=== PATIENT | female | born 1995 | race Caucasian/White ===

== ENCOUNTER 2019-06-16 07:39 | Inpatient (IN) | payer SELFPAY ==
[2019-06-16 08:24] LABS: APPEARANCE,URINE CLEAR; BILIRUBIN,URINE NEGATIVE (NEGATIVE); COLOR,URINE STRAW; GLUCOSE, URINE NEGATIVE (NEGATIVE); KETONES,URINE NEGATIVE (NEGATIVE); LEUKOCYTE ESTERASE,URINE NEGATIVE (NEGATIVE); NITRITE,URINE NEGATIVE (NEGATIVE); PROTEIN,URINE NEGATIVE (NEGATIVE); URINE SPECIFIC GRAVITY 1.002; UROBILINOGEN,URINE NEGATIVE mg/dL (<2.0)
[2019-06-16 08:55] LABS: URINE AMPHETAMINES SCREEN NEGATIVE; URINE BARBITURATES SCREEN NEGATIVE; URINE BENZODIAZEPINES SCREEN NEGATIVE; URINE COCAINE SCREEN NEGATIVE; URINE MARIJUANA (THC) SCREEN NEGATIVE; URINE METHADONE SCREEN NEGATIVE; URINE PHENCYCLIDINE SCREEN NEGATIVE
[2019-06-16] MEDS ORDERED: RINGERS SOLUTION,LACTATED 1,000 ML IV PRN (08:55)
[2019-06-16] MEDS ORDERED: RINGERS SOLUTION,LACTATED 1,000 ML IV ONE (08:55)
[2019-06-16] MEDS ORDERED: VANCOMYCIN HCL 1,000 MG in DEXTROSE 5%-WATER 250 ML IV SCH (09:00)
[2019-06-16] MEDS ORDERED: VANCOMYCIN HCL INJ 1000 MG VIAL ONE (09:05)
[2019-06-16] MEDS ORDERED: TERBUTALINE SULFATE INJ/PF 1 MG/1 ML SDV SUBCUT ONE (09:35)
[2019-06-16] MEDS ORDERED: TERBUTALINE SULFATE INJ/PF 1 MG/1 ML SDV ONE (09:36)
[2019-06-16] MEDS ORDERED: OXYTOCIN/NORMAL SALINE 20 UNIT/1,000 ML RTUINJ ONE (09:37)
[2019-06-16 09:46] LABS: ABSOLUTE BASOPHILS # (AUTO) 0.1 10^3/uL (0.0-0.2); ABSOLUTE EOSINOPHILS # (AUTO) 0.1 10^3/uL (0.0-0.6); ABSOLUTE MONOCYTES (AUTO) 0.5 10^3/uL (0.1-1.4); ABSOLUTE NEUT (AUTO) 7.5 10^3/uL (1.7-8.2); BASOPHILS % (AUTO) 0.6 % (0-2); EOSINOPHILS % (AUTO) 1.2 % (0-6); HEMATOCRIT 29.3 % (36.0-47.0); HEMOGLOBIN 9.8 g/dL (12.0-15.5); LYMPHOCYTES % (AUTO) 19.6 % (13-45); MEAN CORPUSCULAR HEMOGLOBIN 27.3 pg (27.0-33.4); MEAN CORPUSCULAR HGB CONC 33.5 g/dL (32.0-36.0); MEAN CORPUSCULAR VOLUME 82 fl (80-97); MONOCYTES % (AUTO) 5.3 % (3-13); PLATELET COUNT 208 10^3/uL (150-450); RED BLOOD COUNT 3.59 10^6/uL (3.72-5.28); RED CELL DISTRIBUTION WIDTH 15.6 % (11.5-14.0); SEGMENTED NEUTROPHILS % (AUTO) 73.3 % (42-78); TOTAL CELLS COUNTED % (AUTO) 100 %; WHITE BLOOD COUNT 10.3 10^3/uL (4.0-10.5)
[2019-06-16] MEDS ORDERED: FENTANYL/BUPIVACAINE/NS/PF 0 MCG/0 ML RTUINJ EPI ONE (09:52)
[2019-06-16] MEDS ORDERED: EPHEDRINE SULFATE INJ 50 MG/1 ML AMPULE ONE ×2 (09:52→11:00)
[2019-06-16] MEDS ORDERED: BUPIVACAINE HCL 0.25 % INJ/PF (2.5 MG/1 ML) 30 ML VIAL ONE (09:52)
[2019-06-16] MEDS ORDERED: FENTANYL CITRATE INJ/PF 100 MCG/2 ML AMPUL ONE ×3 (09:53→12:35)
[2019-06-16] MEDS ORDERED: LIDOCAINE 2% INJ-PF (20 MG/ML) 10 ML AMPUL ONE (10:45)
[2019-06-16] MEDS ORDERED: MORPHINE SULFATE 10 MG/ML INJ ONE ×2 (10:55→14:01)
[2019-06-16] MEDS ORDERED: OXYTOCIN 10 UNIT/ML VIAL ONE (10:55)
[2019-06-16] MEDS ORDERED: MIDAZOLAM 2 MG/2 ML INJ ONE ×2 (10:55→11:11)
[2019-06-16] MEDS ORDERED: CEFAZOLIN INJ 1 GM VIAL ONE (11:00)
[2019-06-16] MEDS ORDERED: CEFAZOLIN 1 GM/D5W RTU 0 GM/0 ML RTUPB IV ONE (11:01)
[2019-06-16] MEDS ORDERED: CLINDAMYCIN 900 MG/D5W RTU 900 MG/50 ML RTUPB IV ONE (11:02)
[2019-06-16 11:38] LABS: CHLAM PCR NOT DETECTED (NOT DETECT)
[2019-06-16] MEDS ORDERED: ACETAMINOPHEN 325 MG TABLET PO PRN (12:12)
[2019-06-16] MEDS ORDERED: OXYCODONE-ACETAMINOPHEN 5-325 MG TABLET PO PRN (12:12)
[2019-06-16] MEDS ORDERED: SIMETHICONE 80 MG TAB.CHEW PO PRN (12:12)
[2019-06-16] MEDS ORDERED: NORMAL SALINE 1000 ML 1,000 ML IV PRN (12:12)
[2019-06-16] MEDS ORDERED: OXYTOCIN/NORMAL SALINE 20 UNIT/1,000 ML RTUINJ IV PRN (12:12)
[2019-06-16] MEDS ORDERED: PROMETHAZINE HCL INJ 25 MG/1 ML VIAL IV PRN (12:12)
[2019-06-16] MEDS ORDERED: DIPH/PERTUSS(ACELL)/TETANUS VAC/PF 0.5 ML SYR (>=10YO) IM PRN (12:12)
[2019-06-16] MEDS ORDERED: ACETAMINOPHEN 1,000 MG/100 ML RTUPB IV PRN (12:12)
[2019-06-16] MEDS ORDERED: MEASLES,MUMPS&RUBELLA VACC/PF 0.5 ML VIAL SUBCUT PRN (12:12)
[2019-06-16] MEDS ORDERED: KETOROLAC TROMETHAMINE INJ/PF 30 MG/1 ML SDV ONE (12:14)
[2019-06-16] MEDS ORDERED: ACETAMINOPHEN 1,000 MG/100 ML RTUPB IV ONE (12:14)
[2019-06-16 12:43] LABS: ABSOLUTE RETICS # 0.064 10^6/uL (0.028-0.122)
--- NOTE | 2019-06-16 13:12 | Brief Operative Note ---
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 small septation in fundus of uterus, normal tubes/ovaries. double footling breech after COMPLICATIONS: None ESTIMATED BLOOD LOSS: 700ml TISSUE REMOVED OR ALTERED: placenta and cord sent to pathology TECHNICAL PROCEDURE: External Cephalic version - failed, Primary section
--- NOTE | 2019-06-16 13:24 | Operative Report ---
Operative Report DATE OF SURGERY: 06/16/19 PREOPERATIVE DIAGNOSIS: Limited Care, , Genital Herpes (no outbrea k), GBS unknown, Rachel breech, Failed External Cephalic Version, SROM, Questionable Gestational HTN, Iron deficiency Anemia, Rh negative POSTOPERATIVE DIAGNOSIS: AZUCENA - delivered, Footling breech at delivery, nuchal cord OPERATION: External Cephalic version - failed, Primary section SURGEON: MINE HE[facility] ANESTHESIA: Epidural TISSUE REMOVED OR ALTERED: placenta and cord sent to pathology COMPLICATIONS: None ESTIMATED BLOOD LOSS: 700ml INTRAOPERATIVE FINDINGS: After epidural placed, attempt at version with buttocks (rachel breech) move but no movement of head out of Right upper quadrant. Baby tolerated the procedure well with FHR before 120s and after same. Reviewed with patient unable to move baby and recommendation for section and patient desired to proceed. small septation in fundus of uterus, normal tubes/ovaries. double footling breech after attempt at ECV delivered double footling breech with nuchal cord, VFI delivered at 1109, Apgars 7/8, weight 3650g (8#1oz) PROCEDURE: Anesthesia provider: [Michael Pagan CRNA, MD] Urine output: [100ml] IV fluids: [700ml] Indications: [23yo at 39+1ega by ANKUR from records obtained presented with SROM at midnight last night. She is from [place] and now living with her grandmother with her 3 children due to released on butler to grandmother. Records finally obtained and ANKUR 06/22/2019 by late US and late to care at 32wks. All labs redone since no records available at the time of surgery. Patient also has a history of HSV and no evidence of HSV on exam but titers done and patient has been on suppressive therapy. She was evaluated and noted to be breech with adequate fluid and rachel breech presentation. She was counseled regarding options for ECV versus Primary section. She desired attempt at ECV. ECV attempted in OR (see findings) and then when failed reviewed Primary section with patient again. The risks, benefits, alternatives were reviewed again and she desired to proceed with planned procedure for Primary section due to failed ECV.] Procedure: The patient was taken to the operating room where epidural anesthesia was obtained and found to be adequate. She was then prepped and draped in the normal sterile fashion and placed in the dorsal supine position with a leftward tilt. A Pfannenstiel skin incision was then made and carried through to the underlying layers of the fascia with the scalpel. The fascia was incised in the midline and the incision extended laterally with the Brooks scissors. The s uperior aspect of the fascial incision was then grasped with Andrew clamps elevated and the underlying rectus muscles dissected off [bluntly]. Attention was then turned to the inferior aspect of the fascial incision which in a similar fashion was grasped, tented up with Andrew clamps, and the rectus muscles dissected off [bluntly]. The rectus muscles were then in the midline and the peritoneum at the amount identified and entered [bluntly]. The peritoneal incision was then extended superiorly and inferiorly with good visualization of the bladder. The bladder blade was inserted and the vesicouterine peritoneum identified grasped with Liberian pickups and entered sharply with the Metzenbaum scissors. This incision was then extended laterally with the Metzenbaum scissors and a bladder flap created digitally. The bladder blade was then reinserted and the lower uterine segment incised in a transverse fashion with the scalpel. The uterine incision was then extended bluntly. The bladder blade was removed and the was delivered from breech presentation atraumatically. The nose and mouth were suctioned and the cord doubly clamped and cut. And the was handed off to waiting pediatricians. The placenta was then delivered spontaneously and the uterus exteriorized and cleared of all clots and debris. The uterine incision was then repaired with 1- 0 Vicryl in a running locked fashion. A second layer of the same suture was used to obtain hemostasis via imbrication of the initial layer. The bladder flap was then repaired with 3-0 chromic in a running fashion. The uterus was returned to the patient's abdomen and surgicel was placed for hemostasis and Interceed was placed overlying the uterine incision to prevent adhesions. The gutters were cleared of all clots and debris. All operative sites were noted to be hemostatic. The fascia was reapproximated with 0 Vicryl in a running fashion from each lateral edge to the midline. The skin was closed with 3-0 Monocryl in a running subcuticular fashion with overlying Dermabond for additional dressing as well as wound closure. The patient tolerated the procedure well. Sponge lap needle and instrument counts are correct times 2. 900mg Clindamycin were given prior to skin incision. The patient was taken to the recovery area awake and in stable condition.
[2019-06-16 13:35] LABS: FERRITIN 4.74 ng/mL (6.2-137.0)
[2019-06-16 13:41] LABS: IRON(TIBC) < 10.1 ug/dL (37-170)
[2019-06-16] MEDS ORDERED: MISOPROSTOL 0.2 MG TABLET ONE (13:54)
--- NOTE | 2019-06-16 15:14 | Delivery Summary ---
Del Sum A-C Datetime Report Generated by CPN: 06/16/2019 15:14 DELIVERY PERSONNEL DELIVERY PERSONNEL: [id number] Delivery Doctor:: Brianna Campo MD Anesthesiologist:: Mackenzie Rodriguez MD COMMISSARY WORKER:: Sg Raman CRNA Asbestos Removal Worker:: Halie Jamespatel, RN Audiometrist/MAGNETIC TAPE COMPOSER OPERATOR: Emiliana Hill, JEZ Audiometrist/MAGNETIC TAPE COMPOSER OPERATOR: Jackie Monson, EXHAUST AND MUFFLER FITTER MATERNAL INFORMATION Delivery Anesthesia: Epidural Medications After Delivery: Pitocin Bolus-Please Comment; Cytotec 1000mcg Per Rectum/Vagina Meds After Delivery Comment: Pitocin 20 units added to LR and bolused per anesthesia in OR. Maternal Complications: None Complication Details: Late PNC LABOR SUMMARY EDC: 06/22/2019 00:00 No. Babies in Womb: 1 Attempted: No LABOR INFORMATION Reason for Induction: Not Applicable Onset of Labor: 06/16/2019 07:00 Oxytocin: N/A Group B Beta Strep: positive Antibiotics # of Doses: 1 Antibiotics Time of Last Dose: 924 Name of Antibiotic Given: Vancomycin Steroids Given: None Reason Steroids Not Administered: Not Applicable MEMBRANES Membranes Rupture Method: Spontaneous Rupture of Membranes: 06/16/2019 00:00 Length of Rupture (hr): 11.15 Amniotic Fluid Color: Clear Amniotic Fluid Amount: Moderate Amniotic Fluid Odor: Normal STAGES OF LABOR Stage 3 hr: 0 Stage 3 min: 1 Total Time in Labor hr: 4 Total Time in Labor min: 10 VAGINAL DELIVERY Episiotomy: None Laceration Extension #1: N/A CSECTION DELIVERY Primary Indication: Breech Presentation CSection Urgency: Non-Scheduled CSection Incidence: Primary Labor: Labor Elective: N/A CSection Incision: Lower Uterine Transverse BABY A INFORMATION Infant Delivery Date/Time: 06/16/2019 11:09 Method of Delivery: Born in Route : No : N/A Forceps: N/A Vacuum Extraction: N/A Shoulder Dystocia : No PRESENTATION/POSITION BABY A Presentation: Breech Cephalic Presentation: N/A Breech Presentation: Double Footling PLACENTA INFORMATION BABY A Placenta Delivery Time : 06/16/2019 11:10 Placenta Method of Delivery: Manual Removal Placenta Status: Delivered SCORES BABY A Heart Rate 1 min: >100 bpm Resp Effort 1 min: Good Cry Reflex Irritability 1 min: Cough or Sneeze or Pulls Away Muscle Tone 1 min: Some Flexion of Extremities Color 1 min: Blue/Pale Resuscitation Effort 1 min: Tactile Stimulation SCORE 1 MIN: 7 Heart Rate 5 min: >100 bpm Resp Effort 5 min: Good Cry Reflex Irritability 5 min: Cough or Sneeze or Pulls Away Muscle Tone 5 min: Active Motion Color 5 min: Blue/Pale SCORE 5 MIN: 8 INFORMATION BABY A Gestational Age at Delivery: 40.0 Gestational Status: Full Term- 39- 40.6 Weeks Infant Outcome : Liveborn Infant Condition : Stable Infant Sex: Female IDENTIFICATION BABY A ID Band Number: [id number] Infant WEIGHT/LENGTH BABY A Birthweight (gm): 3650 Weight (lb): 8 Weight (oz): 1 Infant Length (in): 20.00 Infant Length (cm): 50.80 CORD INFORMATION BABY A No. Cord Vessels: 3 Nuchal Cord : Around Neck x1, Loose Cord Blood Taken: Yes-For Eval (Mom's Blood Type - or O+) Infant Suction: Mouth; Nose ASSESSMENT BABY A Complications: Other Infant Complications- Other: Terminal Meconium Physical Findings at Delivery: Within Normal Limits Infant Respirations: Appears Normal Skin to Skin: Yes Skin to Skin Time (min): 45 Infant Care By: Nursery RN Transferred To: [facility]
[2019-06-16] MEDS: KETOROLAC TROMETHAMINE INJ/PF 30 MG/1 ML SDV IV SCH ×2 (15:30→22:17)
[2019-06-16] MEDS: HYDROMORPHONE HCL INJ/PF 2 MG/ML AMPULE IV PRN ×2 (15:36→20:31)
[2019-06-16] MEDS: DOCUSATE SODIUM 100 MG CAPSULE PO SCH (17:15)
--- NOTE | 2019-06-16 18:51 | Admission Physical ---
Datetime Report Generated by CPN: 06/16/2019 18:51 CURRENT ADMISSION Chief Complaint: Uterine Contractions; Suspected Ruptured Membranes Indication for Induction: Not Applicable Admit Impression : Term, Intrauterine ; , Intrauterine Admit Plan: Admit to Unit; Initiate Labor Protocol; Initiate Section Protocol ALLERGIES Medication Allergies: Yes Medication Allergies: Penicillins/Hives (06/16/2019) Latex: No Latex Allergies OBSTETRICAL HISTORY EDC: 06/22/2019 00:00 : 4 Para: 3 Term: 3 : 0 SAB: 0 IAB: 0 Ectopic: 0 Livin Cesareans: 0 VBACs: 0 Multiple Births: 0 Gestational Diabetes: No Rh Sensitization: No Incompetent Cervix: No ROBEL: No Infertility: No ART Treatment: No Uterine Anomaly: No IUGR: No Hx Previous C/S: No Macrosomia: No Hx Loss/Stillborn: No PIH: Yes Hx : No Placenta Previa/Abruption: No Depression/PP Depression: Yes PTL/PROM: No Post Hemorrhage: No Current Procedures: Ultrasound; NST Obstetrical History Comments: Pt states she has not been diagnosed with high blood pressure but that every time she had a visit they told her that BP was elevated SEE RECORDS Alcohol: No Marijuana : No Cocaine: No Other Illicit Drugs: Yes Illicit Drug Comments: hx meth use--last used "at the beginning of " Cigarettes: Former Smoker. 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 Surgery: No Heart Disease: No Hosp/Surgery: Yes Autoimmune Disorder: No Anesthetic Complications: No Kidney Disease: No Abnormal Pap Smear: No Neuro/Epilepsy: No Psychiatric Disorders: Yes Other Medical Diseases: No Hepatitis/Liver Disease: No Significant Family History: Yes Varicosities/Phlebitis: No Trauma/Violence : No Thyroid Dysfunction: No Medical History Comments: lap appendectomy--2016 hx PPD with suicide attempt March 2015 hx anxiety and bi-polar INFECTIOUS HISTORY Gonorrhea: Yes Genital Herpes: Yes Chlamydia: No Tuberculosis: No Syphilis: No Hepatitis: No HIV/AIDS Exposure: No Rash or Viral Illness: No HPV: No Infectious History Comments: hx Gonorrhea 2008 PHYSICAL EXAM General: Normal HEENT: Normal Neurologic: Normal Thyroid: Deferred Heart: Normal Lungs: Normal Breast: Deferred Back: Normal Abdomen: Normal Genitourinary Exam: Normal Extremities: Normal DTRs: Normal Pelvic Type: Adequate Physical Exam Comments: poor dentition VAGINAL EXAM Dilatation: 4 Effacement: 70 Station: BB Contraction Comments: none MEMBRANES Membranes: Ruptured Amniotic Fluid Color: Clear FETUS A EGA: 39.1 FHR- Baseline: 125 Variability: Moderate 6-25bpm Accelerations: 15X15 Decelerations: None FHR Category: Category I Presentation: Breech Admit Comment: 23yo at 40+2ega (by reported ANKUR from patient) late to care and limited care. US on documents finally received noted ANKUR by late to care US at 32wks - ANKUR 06/22/2019. Therefore 39+1ega. H/o HSV on prophy. Was recently incarcerated for ramírez larceny and released to Grandmother on butler. SSE - no HSV lesions, copious fluid. US with rachel breech position and head in RUQ. Grandmother present. Not in labor but SROM. GBS unknown and Vanc ordered. Reviewed admission and ECV versus Primary section. Pt reports no methamphetamine use since early but per records tested positive for methamphetamine before mcc. negative today. Consents obtained. All care labs ordered. PLANS FOR LABOR AND DELIVERY Labor and Delivery: None Pain Management: Epidural Feeding Preference: Formula Benefit of Breast Feed Discussed: Yes (Annotations: Data stored by N on behalf of user) Circumcision: No INFORMED CONSENT Informed Consent Obtained: Vaginal Delivery; Section Delivery; Risks, Benefits and Alternatives Discussed Signature: with User ID: [email or web address]
[2019-06-17] MEDS: HYDROMORPHONE HCL INJ/PF 2 MG/ML AMPULE IV PRN (00:24)
[2019-06-17] MEDS: IBUPROFEN 800 MG TABLET PO SCH ×5 (04:48→23:34)
[2019-06-17] MEDS: OXYCODONE-ACETAMINOPHEN 5-325 MG TABLET PO PRN ×4 (04:50→19:43)
[2019-06-17] MEDS: KETOROLAC TROMETHAMINE INJ/PF 30 MG/1 ML SDV IV SCH (05:59)
[2019-06-17 06:23] LABS: HEMATOCRIT 24.3 % (36.0-47.0); HEMOGLOBIN 8.2 g/dL (12.0-15.5); MEAN CORPUSCULAR HEMOGLOBIN 27.5 pg (27.0-33.4); MEAN CORPUSCULAR HGB CONC 33.8 g/dL (32.0-36.0); MEAN CORPUSCULAR VOLUME 81 fl (80-97); PLATELET COUNT 194 10^3/uL (150-450); RED BLOOD COUNT 2.99 10^6/uL (3.72-5.28); RED CELL DISTRIBUTION WIDTH 15.3 % (11.5-14.0)
[2019-06-17] MEDS: DOCUSATE SODIUM 100 MG CAPSULE PO SCH ×2 (09:50→17:11)
[2019-06-17] MEDS: PRENATAL VITAMIN W DHA CAPSULE PO SCH (09:50)
--- NOTE | 2019-06-17 11:02 | PDOC PROGRESS REPORT ---
Subjective-OB Progress Note for:: 06/17/19 Subjective: no complaints. doing well Physical Exam (OB) Vital Signs: Temp Pulse Resp BP Pulse Ox 97.6 F 69 16 92/47 L 99 06/17/19 07:32 06/17/19 07:32 06/17/19 07:32 06/17/19 07:32 06/17/19 07:32 Intake & Output 06/16/19 06/17/19 06/18/19 06:59 06:59 06:59 Output Total 2900 Balance -2900 Weight 79.8 kg - Dressing Removed: No - surgical glue Incision: Well Approximated Closure Type: Surgical Glue - Abdomen Description: Tender, Soft Hernia Present: No Fundal Description: Firm, Midline Fundal Height: u/u - u/2 - Extremities Lower extremities: Shiloh's sign - neg Calf: Normal, Nontender Objective-Diagnostic Laboratory: 06/17/19 06:11 06/16/19 06/16/19 06/16/19 09:33 12:26 12:26 WBC RBC Hgb Hct MCV MCH MCHC RDW Plt Count Retic Count (auto) 1.90 Absolute Retic 0.064 Iron < 10.1 L TIBC 463 H % Saturation UNABLE TO CALCULATE Ferritin 4.74 L Vitamin B12 403.0 Folate 13.90 Blood Type A NEGATIVE Antibody Screen POSITIVE 06/17/19 06/17/19 06:11 06:11 WBC 10.0 RBC 2.99 L Hgb 8.2 L Hct 24.3 L MCV 81 MCH 27.5 MCHC 33.8 RDW 15.3 H Plt Count 194 Retic Count (auto) Absolute Retic Iron TIBC % Saturation Ferritin Vitamin B12 Folate Blood Type A NEGATIVE Antibody Screen
[2019-06-17] MEDS ORDERED: HYDROMORPHONE HCL 2 MG TABLET PO PRN (11:17)
[2019-06-17] MEDS ORDERED: LORAZEPAM 0.5 MG TABLET PO ONE (11:25)
[2019-06-18] MEDS: OXYCODONE-ACETAMINOPHEN 5-325 MG TABLET PO PRN ×2 (02:55→08:13)
[2019-06-18] MEDS: IBUPROFEN 800 MG TABLET PO SCH ×3 (05:59→17:44)
[2019-06-18 07:10] LABS: VARICELLA ZOSTER IGG AB 653 index (Immune >16)
[2019-06-18 07:49] LABS: HEPATITS B SURFACE ANTIGEN Negative (Negative)
[2019-06-18 08:28] VITALS: BP 102/55
--- NOTE | 2019-06-18 09:21 | PDOC PROGRESS REPORT ---
Subjective-OB Progress Note for:: 06/18/19 Subjective: Doing well, no c/o, holding baby, son and mother in room, passing gas, bottle feeding, states she has help at home Physical Exam (OB) Vital Signs: Temp Pulse Resp BP Pulse Ox 97.8 F 73 16 102/55 L 99 06/18/19 08:14 06/18/19 08:14 06/18/19 08:14 06/18/19 08:14 06/18/19 08:14 Intake & Output 06/17/19 06/18/19 06/19/19 06:59 06:59 06:59 Intake Total 725 Output Total 2900 500 Balance -2900 225 Weight 79.8 kg - PIH/Pre-Eclampsia DTR's: 2 + Clonus: Negative Headache: Absent Epigastric Pain: No Visual Changes: No - Dressing Removed: Yes Incision: Well Approximated Closure Type: Surgical Glue - Lochia Lochia Amount: Small 10-25 ml Lochia Color: Rubra/Red - Abdomen Description: Tender, Soft Hernia Present: No Fundal Description: Firm, Midline Fundal Height: u/u - u/2 Objective-Diagnostic Laboratory: 06/17/19 06:11 06/17/19 06:11 Blood Type A NEGATIVE 06/16/19 08:00 Martínez Catheter Urine Culture - Final Group B Beta Streptococcus Mixed Urogenital [place] Assessment and Plan(PN) - Assessment and Plan (1) S/P primary low transverse Is this a current diagnosis for this admission?: Yes (3) History of methamphetamine abuse Is this a current diagnosis for this admission?: Yes (4) HSV-2 infection complicating Is this a current diagnosis for this admission?: Yes (5) PROM (premature rupture of membranes) Qualifiers: PROM gestational age: unspecified gestational age Is this a current diagnosis for this admission?: Yes (6) Limited care Qualifiers: Trimester: unspecified trimester Qualified Code(s): O09.30 - Supervision of with insufficient care, unspecified trimester Is this a current diagnosis for this admission?: Yes - Time Spent with Patient Time with patient: Less than 15 minutes Medications reviewed and adjusted accordingly: Yes - Disposition Anticipated Discharge: Home Within: within 24 hours
--- NOTE | 2019-06-18 09:28 | PDOC DISCHARGE SUMMARY ---
Final Diagnosis Discharge Date: 06/18/19 - Final Diagnosis (1) S/P primary low transverse Is this a current diagnosis for this admission?: Yes (2) Breech presentation, delivered, current hospitalization Is this a current diagnosis for this admission?: Yes (3) History of methamphetamine abuse Is this a current diagnosis for this admission?: Yes (4) HSV-2 infection complicating Is this a current diagnosis for this admission?: Yes (5) PROM (premature rupture of membranes) Is this a current diagnosis for this admission?: Yes (6) Limited care Is this a current diagnosis for this admission?: Yes Discharge Data - Discharge Medication Prescriptions: Oxycodone HCl/Acetaminophen [Percocet 5-325 mg Tablet] 1 tab PO Q4HP PRN #20 tablet PRN Reason: Ibuprofen [Motrin 800 mg Tablet] 800 mg PO Q6 #30 tablet Home Medications: Vitamin [-U Multiple Vitamin Capsule] 1 cap PO DAILY 06/16/19 Valacyclovir HCl [Valtrex 500 mg Tablet] 1 tab PO DAILY 06/16/19 Ibuprofen [Motrin 800 mg Tablet] 800 mg PO Q6 #30 tablet 06/18/19 Oxycodone HCl/Acetaminophen [Percocet 5-325 mg Tablet] 1 tab PO Q4HP PRN #20 tablet 06/18/19 Vit/Dha [ Multi + Dha Capsule] 1 cap PO DAILY capsule 06/18/19 Gestational Age: 40 Reason(s) for Admission: Ceasarean Section-Primary Admission Note: late care, failed version Procedures: Ultrasound Intrapartum Procedure(s): : Low Cervical, Transverse - [place] Data Baby 1 Female at 1 minute: 7 at 5 minutes: 8 Weight: 3.657 kg Home with Mother: Yes Complications: No - Diagnosis Test Laboratory: Temp Pulse Resp BP Pulse Ox 97.8 F 73 16 102/55 L 99 06/18/19 08:14 06/18/19 08:14 06/18/19 08:14 06/18/19 08:14 06/18/19 08:14 06/16/19 06/16/19 06/17/19 08:00 09:33 06:11 RBC 3.59 L 2.99 L Hgb 9.8 L 8.2 L Hct 29.3 L 24.3 L Urine Opiates Screen NEGATIVE - Discharge information/Instructions Discharge Activity: Activity As Tolerated, No Lifting Over 10 Pounds, No Lifting/Push/Pulling, Pelvic Rest Discharge Diet: As Tolerated, Regular Disposition: HOME, SELF-CARE Follow [facility] in: 1, Weeks
[2019-06-18] MEDS: PRENATAL VITAMIN W DHA CAPSULE PO SCH (09:54)
[2019-06-18] MEDS: DOCUSATE SODIUM 100 MG CAPSULE PO SCH ×2 (09:54→17:44)
[2019-06-18 11:37] LABS: HEPATITIS C VIRUS AB <0.1 s/co ratio (0.0-0.9)
== END 2019-06-18 18:20 | disposition home or self-care (01) | DRG 788 ==
LOC: LC 07:39 → LR 08:48 → 2S 14:48
PROVIDERS: ADMIT Student in an Organized Health Care Education/Training Program; ATTEND Student in an Organized Health Care Education/Training Program
PROC: 10D00Z1 Extraction of Products of Conception, Low, Open Approach (ICD-10-PCS; principal; 2019-06-16)
PROC: 10S0XZZ Reposition Products of Conception, External Approach (ICD-10-PCS; 2019-06-16)
PROC: 3E0234Z Introduction of Serum, Toxoid and Vaccine into Muscle, Percutaneous Approach (ICD-10-PCS; 2019-06-18)
PROC: 3E0234Z Introduction of Serum, Toxoid and Vaccine into Muscle, Percutaneous Approach (ICD-10-PCS; 2019-06-18)
PROC: 3E0234Z Introduction of Serum, Toxoid and Vaccine into Muscle, Percutaneous Approach (ICD-10-PCS; 2019-06-18)
DX: O42.02 Full-term premature rupture of membranes, onset of labor within 24 hours of rupture (principal); O99.824 Streptococcus B carrier state complicating childbirth; O32.8XX0 Maternal care for other malpresentation of fetus, not applicable or unspecified; O69.81X0 Labor and delivery complicated by cord around neck, without compression, not applicable or unspecified; O77.0 Labor and delivery complicated by meconium in amniotic fluid; O99.02 Anemia complicating childbirth; D50.9 Iron deficiency anemia, unspecified; F15.11 Other stimulant abuse, in remission; O26.893 Other specified pregnancy related conditions, third trimester; O99.334 Smoking (tobacco) complicating childbirth; F17.211 Nicotine dependence, cigarettes, in remission; Z67.11 Type A blood, Rh negative; Z3A.39 39 weeks gestation of pregnancy; Z37.0 Single live birth; Z23 Encounter for immunization
CPT/HCPCS: 1961; 36415; 80307; 81005; 82607; 82728; 82746; 83540; 83550; 84112; 85025; 85027; 85045; 85461; 86592; 86695; 86701; 86762; 86787; 86803; 86804; 86850; 86870; 86900; 86901; 86920; 86922; 87077; 87081; 87086; 87088; 87340; 87491; 87591; 88307; 90707; 90715; 94799; J0131; J0690; J1170; J1885; J2250; J2270; J2550; J2590; J2790; J3010; J3105; J3370; J3490; J7060; J7120